=== PATIENT | female | born 1960 | race Caucasian/White ===

== ENCOUNTER 2017-04-08 09:14 | Emergency (ER) | payer OTHER ==
--- NOTE | ~2017-04-08 | CT4 ---
[facility] A Service of [facility] RADIOLOGY TEXT RESULTS PATIENT: DAVI AVALOS LOCATION: [facility] : 56 UNIT #: [id number] AGE: [address]: JUAN BELL SEX: F ORDER DR: [id number] [facility] [address] [place], [place] [address] [id number] E MR#: [id number] Acc #: [id number] NAME: DAVI AVALOS : 1960 SEX: F STUDY DATE/TIME: 04/08/2017 10:52 UNIT: [facility] ROOM: STUDY DESCRIPTION: CT Abd and Pelv Wo Cont Attending Physician: Juan Bell Aprn Ordering Physician: Juan Bell Aprn Primary Care Physician: Regino Hyatt M.D. MEDICAL IMAGING REPORT This report is preliminary unless electronic signature is present EXAM Abdomen and pelvis CT without contrast HISTORY Left-sided renal colic for the past 3 days, worsening today. TECHNIQUE Axial images were obtained through the abdomen pelvis without contrast. Comparison from 07/09/2013. This CT exam was performed with one or more of the following radiation dose reduction techniques: automatic exposure control, adjustment of mA and/or kV according to patient size, and iterative reconstruction. FINDINGS The liver, spleen and pancreas are normal in size. There is a small duodenal diverticulum noted. It is unchanged from previous scan. No hydronephrosis is noted. No ureteral stones are seen on either side. There is no evidence of retroperitoneal adenopathy or ascites. . No distended bowel loops are noted. In the pelvis, there is no evidence of adenopathy, mass or fluid collection. Spinal canal narrowing is seen at T11-T12 secondary calcification the posterior disc margin. This has increased since 2012. IMPRESSION 1. No evidence of kidney stone disease or obstruction. No acute inflammatory changes are seen in the abdomen or pelvis. 2. Progressive spinal canal narrowing at T11-12 from progressive calcification of the posterior disc margin. Dictated by... [facility] A Service [facility] RADIOLOGY TEXT RESULTS PATIENT: DAVI AVALOS LOCATION: [facility] : 56 UNIT #: [id number] AGE: [address]: JUAN BELL SEX: F ORDER DR: Malachi Bae M.D. THIS IS AN ELECTRONICALLY VERIFIED REPORT Malachi Bae M.D. at 04/08/2017 4:28 PM ASHLEE/maribell TD: 04/08/2017 12:47 JOB #: [id number] MEDICAL IMAGING REPORT Page 1 of 1 COPY
--- NOTE | ~2017-04-08 | EKG ---
PATIENT: DAVI AVALOS UNIT #: [id number] Ventricular Rate: 66 BPM Atrial Rate: 66 BPM P-R Interval: 164 ms QRS Duration: 82 ms Q-T Interval: 440 ms QTC Calculation(Bezet): 461 ms P Melrude: 47 degrees Calculated R Melrude: -42 degrees Calculated T Melrude: 10 degrees Diagnosis Line: Normal sinus rhythm Diagnosis Line: Left axis deviation Diagnosis Line: Abnormal ECG Diagnosis Line: When compared with ECG of 09-JUL-2013 02:17, Diagnosis Line: T wave inversion no longer evident in Anterior Diagnosis Line: leads Diagnosis Line: Confirmed by LIVIA MICHELE MD ([id number]) on Diagnosis Line: 04/12/2017 3:11:27 PM INTERPRETING MD: RYNE DEJESUS
[~2017-04-08 09:14] MED LIST: ALEVE220 M1 PO; AMBIEN PO; ASPIRIN81 M1 PO; BENTYL20 MG PO; EFFEXOR PO; EXCEDRIN MIGRAI1 TA1 PO; IBUPROFEN PO; NEXIUM PO; NO MEDICATIONS; PERCOCET 7.5-31 EACH PO; PRILOSEC PO; VIT B 12; VIT B 6; ZEGERID 20 MG C1 CAP; ZEGERID 20 MG C1 CAP PO
[2017-04-08 10:05] LABS: BASOPHIL# 0.1 X10e3 (0-0.3); BASOPHIL% 0.7 % (0-2.5); EOSINOPHIL# 0.2 X10e3 (0-0.7); EOSINOPHIL% 1.9 % (0.0-7.0); HEMATOCRIT 39.5 % (35.0-45.0); HEMOGLOBIN 13.1 gm/dL (12.0-16.0); LYMPHOCYTE# 1.6 X10e3 (1.0-3.5); LYMPHOCYTE% 17.5 % (17.0-45.0); MEAN CELL VOLUME 90.6 FL (83-96); MEAN CORPUSCULAR HEMOGLOBIN 30.1 PG (28-34); MEAN CORPUSCULAR HGB CONC 33.2 g/dL (30-36); MEAN PLATELET VOLUME 7.3 FL (6.5-11.5); MONOCYTE# 0.8 X10e3 (0-1.0); MONOCYTE% 8.3 % (3.0-12.0); NEUTROPHIL# 6.5 X10e3 (1.5-7.1); NEUTROPHIL% 71.6 % (40-75); PLATELET COUNT 235 X10e3 (140-420); RED BLOOD COUNT 4.35 X10e (3.90-5.30); RED CELL DISTRIBUTION WIDTH 13.5 % (11.0-15.5)
[2017-04-08 10:06] LABS: DIFF IND NO
[2017-04-08 10:12] LABS: URINE SOURCE CLEAN CATCH
[2017-04-08 10:18] LABS: URINE APPEARANCE CLEAR; URINE BILIRUBIN NEG (NEG); URINE BLOOD TRACE (NEG); URINE COLOR YELLOW; URINE GLUCOSE NEG (NEG); URINE KETONE NEG (NEG); URINE LEUKOCYTE ESTERASE 2+ (NEG); URINE NITRATE NEG (NEG); URINE PH 5.5 (5-8); URINE PROTEIN NEG (NEG); URINE SPECIFIC GRAVITY 1.021 (1.003-1.035)
[2017-04-08 10:20] LABS: CULTURE INDICATED? YES; URINE BACTERIA AUWI NEG (NEGATIVE); URINE SQUAMOUS EPITHELIAL CELL OCC /[HPF]; UWBCS1 AUWI 25-50 (0-5)
[2017-04-08 10:31] LABS: ALBUMIN SERUM 4.5 g/dL (3.5-5.0); BILIRUBIN,TOTAL 0.6 mg/dL (0.2-2.0); BUN/CREATININE RATIO 18.57; CALCIUM SERUM 9.1 mg/dL (8.4-10.2); CREATININE SERUM 0.7 mg/dL (0.6-1.4); GLOM FILT RATE Estimated 95.5 mL/min (>60); POTASSIUM 3.8 mmol/L (3.5-5.1); PROTEIN TOTAL SERUM 7.3 g/dL (6.0-8.3)
== END 2017-04-08 13:03 | disposition home or self-care (01) ==
LOC: CED 09:14
PROVIDERS: Nurse Practitioner Family
DX: R10.9 Unspecified abdominal pain (principal); M54.5 Low back pain; Z90.49 Acquired absence of other specified parts of digestive tract
CPT/HCPCS: 36415; 74176; 80053; 81003; 85025; 87086; 93005; 96361; 96374; 99284; J1885